=== PATIENT | male | born 1980 | race American Indian/Alaskan Native ===

== ENCOUNTER 2018-08-26 20:19 | Emergency (ER) | payer SELFPAY ==
[2018-08-26 20:44] VITALS: BP 156/99
--- NOTE | 2018-08-26 20:49 | Emergency Department Report ---
Blank Doc - Documentation Documentation: This is a 37-year-old male that presents with stating has a foreign body in his throat. This initial assessment/diagnostic orders/clinical plan/treatment(s) is/are subject to change based on patient's health status, clinical progression and re- assessment by fellow clinical providers in the ED. Further treatment and workup at subsequent clinical providers discretion. Patient/guardians urged not to elope from the ED as their condition may be serious if not clinically assessed and managed. Initial orders include: 1- Patient sent to [facility] for further evaluation and treatment 2- xray neck soft tissue
--- NOTE | 2018-08-26 21:32 | XRay Report ---
PROCEDURE: XR ABDOMEN 1V AP TECHNIQUE: Frontal view of the mid and lower abdomen and pelvis HISTORY: sore throat with r/o foreign body COMPARISONS: None FINDINGS: The bowel gas pattern is nonobstructive. There is no evidence of radiopaque foreign body in the visualized portion of the mid and lower abdome n and pelvis. The bony structures are unremarkable. IMPRESSION: 1. No evidence of radiopaque foreign body in the visualized portions of the mid and lower abdomen and pelvis. This document is electronically signed by Christa Fatima MD., August 26 2018 09:30:38 PM ET
--- NOTE | 2018-08-26 21:33 | XRay Report ---
PROCEDURE: XR NECK SOFT TISSUE TECHNIQUE: Frontal and lateral views of the neck HISTORY: sore throat w/ r/o foreign body COMPARISONS: None FINDINGS: There is no evidence of radiopaque foreign body. There is no evidence of compromise of the airway. The bony structures are unremarkable. IMPRESSION: 1. No evidence of radiopaque foreign body. If there is a persistent clinical concern for foreign body, CT may be helpful for further evaluation. This document is electronically signed by Christa Fatima MD., August 26 2018 09:32:13 PM ET
[2018-08-26] MEDS ORDERED: LIDOCAINE VISCOUS 2% PO ONE (23:56)
--- NOTE | 2018-08-27 00:29 | Emergency Department Report ---
ED General Adult HPI - General Chief complaint: Skin/Abscess/Foreign Body Stated complaint: SOMETHING IN THROAT Time Seen by Provider: 08/26/18 20:48 Source: patient Mode of arrival: Ambulatory Limitations: No Limitations - History of Present Illness Initial comments: This is a 37-year-old -Thai male presents to emergency room with the sensation of foreign object in throat. Patient states he was drinking lemonade 30 minutes prior to arrival when he fell something go down his throat altered in liquid. Patient states he remembers seeing something plastic floating in cup and possibly went down his throat. Patient states it is discomfort with swallowing. Onset/Timin -: minutes(s) Radiation: non-radiation Severity scale (0 -10): 5 Quality: aching Consistency: intermittent Improves with: none Worsens with: eating, other (swallowing) Associated Symptoms: denies other symptoms Treatments Prior to Arrival: none - Related Data Previous Rx's Medication Instructions Recorded Last Taken Type Dicyclomine [Bentyl] 10 mg PO QID PRN #30 capsule 04/01/18 Unknown Rx Ibuprofen 800 mg PO TID PRN #30 tablet 04/01/18 Unknown Rx Ondansetron [Zofran Odt] 4 mg PO TID PRN #7 tab.rapdis 04/01/18 Unknown Rx Lidocaine Viscous 2% 15 ml MM Q4H PRN #100 ml 08/27/18 Unknown Rx Allergies Allergy/AdvReac Type Severity Reaction Status Date / Time No Known Allergies Allergy Unverified 06/08/15 21:21 ED Review of Systems ROS: Stated complaint: SOMETHING IN THROAT Other details as noted in HPI Constitutional: denies: chills, fever ENT: throat pain (discomfort). denies: ear pain Respiratory: denies: cough, shortness of breath, wheezing Cardiovascular: denies: chest pain, palpitations Gastrointestinal: denies: abdominal pain, nausea, diarrhea Skin: denies: rash, lesions Neurological: denies: headache, weakness, paresthesias Psychiatric: denies: anxiety, depression ED Past Medical Hx - Past Medical History Previous Medical History?: Yes Hx GERD: Yes - Surgical History Past Surgical History?: No - Social History Smoking Status: Never Smoker Substance Use Type: Alcohol - Medications Home Medications: Home Medications Medication Instructions Recorded Confirmed Last Taken Type Dicyclomine [Bentyl] 10 mg PO QID PRN #30 capsule 04/01/18 Unknown Rx Ibuprofen 800 mg PO TID PRN #30 tablet 04/01/18 Unknown Rx Ondansetron [Zofran Odt] 4 mg PO TID PRN #7 tab.rapdis 04/01/18 Unknown Rx Lidocaine Viscous 2% 15 ml MM Q4H PRN #100 ml 08/27/18 Unknown Rx ED Physical Exam - General Limitations: No Limitations General appearance: alert, in no apparent distress - ENT ENT exam: Present: normal orophraynx, mucous membranes moist - Neck Neck exam: Present: normal inspection - Respiratory Respiratory exam: Present: normal lung sounds bilaterally. Absent: respiratory distress - Cardiovascular Cardiovascular Exam: Present: regular rate, normal rhythm. Absent: systolic murmur, diastolic murmur, rubs, gallop - GI/Abdominal GI/Abdominal exam: Present: soft, normal bowel sounds - Neurological Exam Neurological exam: Present: alert, oriented X3 - Psychiatric Psychiatric exam: Present: normal affect, normal mood - Skin Skin exam: Present: warm, dry, intact, normal color. Absent: rash ED Course Vital Signs 08/26/18 08/26/18 20:43 20:48 Temperature 98.7 F 98.7 F Pulse Rate 108 H 98 H Respiratory 20 18 Rate Blood Pressure 156/99 156/99 O2 Sat by Pulse 98 100 Oximetry ED Medical Decision Making - Radiology Data Radiology results: report reviewed PROCEDURE: XR NECK SOFT TISSUE TECHNIQUE: Frontal and lateral views of the neck HISTORY: sore throat w/ r/o foreign body COMPARISONS: None FINDINGS: There is no evidence of radiopaque foreign body. There is no evidence of compromise of the airway. The bony structures are unremarkable. IMPRESSION: 1. No evidence of radiopaque foreign body. If there is a persistent clinical concern for foreign body, CT may be helpful for further evaluation. PROCEDURE: XR ABDOMEN 1V AP TECHNIQUE: Frontal view of the mid and lower abdomen and pelvis HISTORY: sore throat with r/o foreign body COMPARISONS: None FINDINGS: The bowel gas pattern is nonobstructive. There is no evidence of radiopaque foreign body in the visualized portion of the mid and lower abdomen and pelvis. The bony structures are unremarkable. IMPRESSION: 1. No evidence of radiopaque foreign body in the visualized portions of the mid and lower abdomen and pelvis. - Medical Decision Making Patient was examined by me. Vitals are normal and patient is in no acute distress. Obtained x-rays neck soft tissue and abdomen. X-rays dictated by radiologist report reviewed by myself. No evidence of radiopaque foreign body. No evidence of radiopaque foreign body in the visualized portions of the mid and lower abdomen and pelvis. Given lidocaine viscous while in ER. Patient informed of results. Referral to ENT for further evaluation. Start lidocaine viscous. Plan discussed with patient to discharge home and treat outpatient. He agrees with ER plan. Patient discharged home in stable condition. Critical care attestation.: If time is entered above; I have spent that time in minutes in the direct care of this critically ill patient, excluding procedure time. ED Disposition Clinical Impression: Foreign body sensation in throat Disposition: DC-01 TO HOME OR SELFCARE Is pt being admited?: No Does the pt Need Aspirin: No Condition: Stable Instructions: Foreign Body Ingestion (ED) Additional Instructions: Follow-up with your nose and throat from referrals. Prescriptions: Lidocaine Viscous 2% 15 ml MM Q4H PRN #100 ml PRN Reason: Sore Throat Referrals: SYDNEE GOODE MD [Primary Care Provider] - 3-5 Days [facility] [Provider Group] - 3-5 Days [facility], [facility] [Provider Group] - 3-5 Days Forms: Work/School Release Form(ED) Time of Disposition: 00:33
[2018-08-27] MEDS ORDERED: TYLENOL PO ONE (00:43)
[2018-08-27] MEDS ORDERED: TYLENOL ONE (00:45)
== END 2018-08-27 00:46 | disposition home or self-care (01) ==
LOC: ED 20:19
DX: R09.89 Other specified symptoms and signs involving the circulatory and respiratory systems (principal); K21.9 Gastro-esophageal reflux disease without esophagitis; Z79.899 Other long term (current) drug therapy
CPT/HCPCS: 70360; 74018; 99283